=== PATIENT | female | born 1995 | race Caucasian/White ===

== ENCOUNTER 2018-12-31 10:34 | Emergency (ER) | payer SELFPAY ==
[2018-12-31 11:10] LABS: ADD MAN DIFF? NO
[2018-12-31 11:18] LABS: WHITE BLOOD COUNT 13.4 10^3/ul (4.8-10.8)
[2018-12-31 11:18] LABS: BASOPHIL # 0.1 10^3/ul (0.0-0.1); BASOPHILS % 0.5 % (0.0-2.0); EOSINOPHILS # 0.1 10^3/ul (0.0-0.5); EOSINOPHILS % 0.4 % (0.0-7.0); HEMATOCRIT 36.1 % (37.0-47.0); HEMOGLOBIN 11.4 g/dl (12.0-16.0); LYMPHOCYTES # 1.6 10^3/ul (0.8-2.9); LYMPHOCYTES % 12.2 % (15.0-51.0); MEAN CORPUSCULAR HEMOGLOBIN 27.8 pg (29.0-33.0); MEAN CORPUSCULAR HGB CONC 31.6 g/dl (32.0-37.0); MEAN PLATELET VOLUME 11.5 fl (7.4-10.4); MONOCYTE # 0.7 10^3/ul (0.3-0.9); MONOCYTES % 5.2 % (0.0-11.0); NEUTROPHIL # 10.8 10^3/ul (1.6-7.5); NEUTROPHILS % 81.2 % (39.0-77.0); PLATELET COUNT 385 10^3/UL (140-415)
[2018-12-31] MEDS: SOD CHLORIDE 0.9% 1,000 ML IV ×2 (11:28→14:28)
[2018-12-31] MEDS: LORAZEPAM 2 MG INJ IV ×2 (11:28→14:28)
[2018-12-31 11:39] LABS: INR 0.95; PARTIAL THROMBOPLASTIN TIME 24.7 Sec (23.0-35.0); PROTIME 12.8 Sec (11.9-14.9)
[2018-12-31 11:40] LABS: ALANINE AMINOTRANSFERASE 22 IU/L (13-69); ALBUMIN 4.6 g/dl (3.3-4.9); ALKALINE PHOSPHATASE 83 IU/L (42-121); ANION GAP 14 (5-13); ASPARTATE AMINO TRANSFERASE 28 IU/L (15-46); BILIRUBIN,INDIRECT 0.4 mg/dl (0-1.1); BILIRUBIN,TOTAL 0.4 mg/dl (0.2-1.3); BLOOD UREA NITROGEN 13 mg/dl (7-20); CALCIUM 9.1 mg/dl (8.4-10.2); CARBON DIOXIDE 22 mmol/L (21-31); CHLORIDE 108 mmol/L (97-110); CREATINE KINASE 171 IU/L (23-200); CREATININE 0.66 mg/dl (0.44-1.00); Estimated GFR > 60 mL/min (>60); GLUCOSE 114 mg/dl (70-220); POTASSIUM 3.7 mmol/L (3.5-5.1); SODIUM 144 mmol/L (135-144); TOTAL PROTEIN 7.3 g/dl (6.1-8.1)
[2018-12-31 11:49] LABS: CK INDEX 0.9; CK-MB 1.62 ng/ml (0.0-2.4); TROPONIN-I < 0.012 ng/ml (0.000-0.120)
[2018-12-31] MEDS: ZIPRASIDONE 20 MG CAP PO (13:06)
[2018-12-31] MEDS: DILTIAZEM 25 MG INJ IV (13:06)
[2018-12-31] MEDS: METOPROLOL 5 MG INJ IV (14:34)
[2018-12-31 15:07] LABS: CREATINE KINASE 192 IU/L (23-200)
[2018-12-31 15:27] LABS: CK INDEX 1.5; CK-MB 2.92 ng/ml (0.0-2.4); TROPONIN-I < 0.012 ng/ml (0.000-0.120)
[2018-12-31 15:31] LABS: ADD UMIC YES; UR ASCORBIC ACID NEGATIVE (NEGATIVE); UR BACTERIA FEW /HPF (NONE SEEN); UR BILIRUBIN (Dip) NEGATIVE (NEGATIVE); UR BLOOD (Dip) NEGATIVE (NEGATIVE); UR CLARITY SLIGHTLY CLOUDY (CLEAR); UR COLOR YELLOW (YELLOW); UR GLUCOSE (Dip) NEGATIVE (NEGATIVE); UR KETONES (Dip) NEGATIVE (NEGATIVE); UR LEUKOCYTE ESTERASE (Dip) TRACE Leu/ul (NEGATIVE); UR MUCUS FEW /HPF (NONE SEEN); UR NITRITE (Dip) NEGATIVE (NEGATIVE); UR RBC 2 /HPF (0-5); UR SPECIFIC GRAVITY (Dip) 1.015 (1.003-1.030); UR SQUAMOUS EPITHELIAL CELL FEW /HPF (FEW); UR TOTAL PROTEIN (Dip) NEGATIVE (NEGATIVE); UR UROBILINOGEN (Dip) NEGATIVE (NEGATIVE); UR WBC 5 /HPF (0-5)
[2018-12-31 15:32] LABS: FREE THYROXINE INDEX (Calc) 2.33 ug/ml (0.65-3.89); T3 UPTAKE 29.9 % (23.5-40.5); T4 (THYROXINE) 7.8 ug/dl (5.5-11.0)
[2018-12-31 17:20] LABS: BARBITURATES Negative (NEGATIVE); BENZODIAZEPINES Negative (NEGATIVE); CANNABINOIDS Negative (NEGATIVE); COCAINE Negative (NEGATIVE); OPIATES Negative (NEGATIVE)
[2018-12-31 17:33] LABS: AMPHETAMINE/METHAMPHETAMINE Positive (NEGATIVE)
[2018-12-31 19:28] LABS: ETHANOL < 10.0 mg/dl (0-0); SALICYLATE < 1.0 mg/dl (5.0-30.0)
[2018-12-31 19:28] LABS: ACETAMINOPHEN < 10.0 ug/ml (10.0-30.0)
== END 2018-12-31 18:10 | disposition home or self-care (01) ==
LOC: E/R 10:34
DX: F43.10 Post-traumatic stress disorder, unspecified (principal); R00.0 Tachycardia, unspecified; J45.909 Unspecified asthma, uncomplicated; Z91.040 Latex allergy status
CPT/HCPCS: 80053; 80307; 81001; 82550; 82553; 84436; 84479; 84484; 84703; 85025; 85610; 85730; 93005; 96361; 96374; 96375; 96376; 99284-25